=== PATIENT | male | born 1995 | race Hispanic/Latino ===

== ENCOUNTER 2023-05-29 10:40 | Emergency (ER) | payer MEDICAID, OTHER ==
[~2023-05-29] VITALS: Ht 182.9 cm; Wt 99.8 kg
[~2023-05-29 10:40] MED LIST: no medications
[2023-05-29 11:03] VITALS: BP 172/106; PULSE 98; RESP 18; O2SAT 97
[2023-05-29] MEDS ORDERED: LACTATED RINGERS 1000ML 1,000 ML IV ONE (11:30)
[2023-05-29 11:32] LABS: BASOPHILS % (AUTO) 0.4 % (0.0-5.0); EOSINOPHILS % (AUTO) 0.2 % (0.0-8.0); HEMATOCRIT 48.2 % (42-54); LYMPHOCYTES % (AUTO) 8.3 % (21.0-51.0); MEAN CORPUSCULAR HEMOGLOBIN 29.7 pg (27.0-33.0); MEAN CORPUSCULAR HGB CONC 34.2 g/dL (32.0-36.0); MEAN CORPUSCULAR VOLUME 86.7 fL (79-99); MONOCYTES % (AUTO) 11.8 % (3.0-13.0); NEUTROPHILS % (AUTO) 78.8 % (40.0-77.0); PLATELET COUNT (AUTO) 278 K/uL (130-400); RED BLOOD CELL COUNT(AUTO) 5.56 MIL/uL (4.50-6.20); RED CELL DISTRIBUTION WIDTH 12.7 % (11.0-15.5); WHITE BLOOD COUNT (AUTO) 12.9 K/uL (4.8-10.8)
[2023-05-29 11:44] LABS: CARBON DIOXIDE 27 mmol/L (21-32); CHLORIDE 94 mmol/L (101-111); GLOMERULAR FILTR. RATE CALC 106 mL/min (>90); GLUCOSE,RANDOM 107 mg/dL (70-105); POTASSIUM 3.3 mmol/L (3.5-5.1); SODIUM SERUM 134 mmol/L (136-145); UREA NITROGEN, BLOOD 10 mg/dL (7-18)
[2023-05-29 11:49] LABS: ALANINE AMINOTRANSFERASE 29 U/L (12-78); ALBUMIN 3.2 g/dL (3.5-5.0); ASPARTATE AMINOTRANSFERASE 16 U/L (10-37); LIPASE < 50 U/L (114-286); TOTAL PROTEIN, SERUM 8.4 g/dL (6.0-8.3)
== END 2023-05-29 13:08 | disposition home or self-care (01) ==
LOC: EDH 10:40
DX: R10.13 Epigastric pain (principal); R11.2 Nausea with vomiting, unspecified; R19.7 Diarrhea, unspecified; Z88.0 Allergy status to penicillin; Z20.822 Contact with and (suspected) exposure to COVID-19
CPT/HCPCS: 99283; 96360; 87635; 96361; 80053; 83690; 85025; 87804 ×2; 36415; C9803; J7120

== ENCOUNTER 2023-09-09 08:42 | Inpatient (IN) | payer OTHER ==
[2023-09-09] VITALS (24 sets, daily range): BP systolic 152–165; BP diastolic 81–97; PULSE 110–123; RESP 18–61; O2SAT 100
[~2023-09-09] VITALS: Ht 182.9 cm; Wt 104.1 kg
[2023-09-09 09:12] LABS: BASOPHILS # (AUTO) 0.16 K/uL (0.00-0.20); BASOPHILS % (AUTO) 0.7 % (0.0-5.0); HEMATOCRIT 50.8 % (42-54); IMMATURE GRANULOCYTE ABSOLUTE 0.16 K/uL (0-1); LYMPHOCYTES # (AUTO) 0.9 K/uL (1.0-4.8); LYMPHOCYTES % (AUTO) 3.7 % (21.0-51.0); MEAN CORPUSCULAR HEMOGLOBIN 30.7 pg (27.0-33.0); MEAN CORPUSCULAR HGB CONC 35.4 g/dL (32.0-36.0); MEAN CORPUSCULAR VOLUME 86.5 fL (79-99); MONOCYTES # (AUTO) 0.8 K/uL (0.1-1.0); MONOCYTES % (AUTO) 3.3 % (3.0-13.0); NEUTROPHILS % (AUTO) 91.6 % (40.0-77.0); PLATELET COUNT (AUTO) 252 K/uL (130-400); RED BLOOD CELL COUNT(AUTO) 5.87 MIL/uL (4.50-6.20); RED CELL DISTRIBUTION WIDTH 13.4 % (11.0-15.5); WHITE BLOOD COUNT (AUTO) 23.9 K/uL (4.8-10.8)
[2023-09-09 09:23] LABS: AMPHET/METH SCREEN,URINE NEGATIVE (NEGATIVE); BARBITURATE SCREEN, URINE NEGATIVE (NEGATIVE); BENZODIAZEPINES SCREEN,URINE NEGATIVE (NEGATIVE); CANNABINOID SCREEN,URINE POSITIVE (NEGATIVE); COCAINE SCREEN,URINE POSITIVE (NEGATIVE); OPIATE SCREEN,URINE NEGATIVE (NEGATIVE); PHENCYCLIDINE SCREEN,URINE NEGATIVE (NEGATIVE)
[2023-09-09 09:24] LABS: ADD UA MICROSCOPIC YES
[2023-09-09 09:29] LABS: ALBUMIN 3.2 g/dL (3.5-5.0); BILIRUBIN,TOTAL 0.9 mg/dL (0.2-1.0); CREATININE 1.4 mg/dL (0.5-1.5); POTASSIUM 3.6 mmol/L (3.5-5.1)
[2023-09-09 09:35] LABS: APPEARANCE,URINE CLOUDY (CLEAR); BILIRUBIN,URINE NEGATIVE (NEGATIVE); COLOR,URINE YELLOW (YELLOW); GLUCOSE, URINE (UA) NEGATIVE (NEGATIVE); KETONES,URINE 40 mg/dL (NEGATIVE); LEUKOCYTE ESTERASE ,URINE 75 Leu/uL (NEGATIVE); MUCUS,URINE RARE LPF (None Seen); NITRATE,URINE NEGATIVE (NEGATIVE); NON-SQUAMOUS EPITHELIAL CELL 1 /HPF (0-2); OCCULT BLOOD,URINE MODERATE (NEGATIVE); PH,URINE 5.5 (5.0-8.0); PROTEIN,URINE 100 mg/dL (NEGATIVE); SQUAMOUS EPITHELIAL CELL,UR RARE /HPF (0-2); UROBILINOGEN,URINE 0.2 mg/dL (0.2-1.0); WBC,URINE 26-50 /HPF (0-1)
[2023-09-09] MEDS ORDERED: LACTATED RINGERS 1000ML 2,328 ML IV ONE (10:00)
[2023-09-09 10:58] LABS: MAGNESIUM 1.8 mg/dL (1.80-2.40)
[2023-09-09] MEDS ORDERED: LEVOFLOXACIN 750 MG/D5W 150ML BAG IV ONE (12:30)
[2023-09-09] MEDS ORDERED: VANCOMYCIN KIT 1 GM/250 ML IV.KIT IV ONE (12:30)
[2023-09-09] MEDS ORDERED: 0.9%NACL 1000ML 1,000 ML IV SCH (13:30)
[2023-09-09 14:10] LABS: CREATININE,URINE RANDOM 303 mg/dL (30-135); SODIUM,URINE RANDOM 26 mmol/l (40-220)
[2023-09-09 14:23] LABS: INR 1.17 (0.85-1.15); PROTHROMBIN TIME 13.4 SEC (9.6-11.6)
[2023-09-09 14:25] LABS: PARTIAL THROMBOPLASTIN TIME 36.6 SEC (26.3-35.5)
[2023-09-09] MEDS: METRONIDAZOLE 500MG/100ML BAG 100 ML IVPB SCH (16:02)
[2023-09-09] MEDS ORDERED: FLUCONAZOLE 400 MG/NS 200 ML 200 ML IV SCH (17:00)
[2023-09-09] MEDS ORDERED: POTASSIUM CHLORIDE 20MEQ/100ML 100 ML IV PRN ×2 (17:00)
[2023-09-09] MEDS ORDERED: POTASSIUM CHLORIDE 10% ELIXIR 20 MEQ/15 ML UDCUP PO PRN (17:00)
[2023-09-09] MEDS ORDERED: DEXTROSE 50%-WATER 50 ML DISP.SYRIN IV PRN (17:00)
[2023-09-09] MEDS ORDERED: GLUCAGON 1MG KIT 1 MG ML IM PRN (17:00)
[2023-09-09] MEDS ORDERED: AZITHROMYCIN 500MG+NS 250ML 250 ML IVPB ONE (19:00)
[2023-09-09] MEDS ORDERED: PROPOFOL 10 MG/ML 20ML VIAL IV ONE ×2 (19:49→22:01)
[2023-09-09] MEDS ORDERED: MIDAZOLAM HCL 1 MG/ML 2ML VIAL ONE (19:49)
[2023-09-09] MEDS ORDERED: SUCCINYLCHOLINE 200MG/10ML SYR ONE (19:49)
[2023-09-09] MEDS ORDERED: ROCURONIUM 10MG/1ML SYR 10 MG/ML ML ONE ×3 (19:49→22:16)
[2023-09-09] MEDS ORDERED: FENTANYL CITRATE PF 50 MCG/1 ML 5ML AMP IV ONE (20:00)
[2023-09-09] MEDS ORDERED: CLINDAMYCIN 900MG/6ML INJ IJ ONE (20:02)
[2023-09-09] MEDS: AZITHROMYCIN 500MG+NS 250ML IVPB SCH (21:30)
[2023-09-09] MEDS ORDERED: ROPIVACAINE 0.5% 5MG/ML 30ML IJ ONE (22:15)
[2023-09-09] MEDS ORDERED: BUPIVACAINE/PF 0.5% 30ML VIAL ONE (22:25)
[2023-09-09] MEDS ORDERED: LIDOCAINE HCL 1% 20 ML VIAL ONE (22:27)
[2023-09-09] MEDS ORDERED: LIDOCAINE HCL 1% 10 ML VIAL ONE (22:27)
[2023-09-09] MEDS ORDERED: GLYCOPYRROLATE 1 MG/5 ML SYRINGE ONE (23:01)
[2023-09-09] MEDS ORDERED: NEOSTIGMINE 5MG/5ML SYR IV ONE (23:02)
[2023-09-09] MEDS: FAMOTIDINE 20MG VIAL IV SCH (23:51)
[2023-09-10] VITALS (45 sets, daily range): BP systolic 99–167; BP diastolic 64–110; PULSE 102–129; RESP 13–29; O2SAT 93–100
[2023-09-10] MEDS ORDERED: ONDANSETRON 4MG INJ IVP PRN
[2023-09-10] MEDS: HYDROMORPHONE 2 MG VIAL (2MG/ML) IVP PRN ×4 (00:59→21:38)
[2023-09-10] MEDS: AZITHROMYCIN 500MG+NS 250ML IVPB SCH (01:00)
[2023-09-10] MEDS: METRONIDAZOLE 500MG/100ML BAG 100 ML IVPB SCH ×4 (01:55→21:38)
[2023-09-10] MEDS: HYDRALAZINE 20MG/ML VIAL IV PRN (03:14)
[2023-09-10 03:49] LABS: BASOPHILS # (AUTO) 0.05 K/uL (0.00-0.20); BASOPHILS % (AUTO) 0.8 % (0.0-5.0); HEMATOCRIT 47.1 % (42-54); IMMATURE GRANULOCYTE ABSOLUTE 0.04 K/uL (0-1); LYMPHOCYTES # (AUTO) 0.4 K/uL (1.0-4.8); LYMPHOCYTES % (AUTO) 6.8 % (21.0-51.0); MEAN CORPUSCULAR VOLUME 88.4 fL (79-99); MONOCYTES # (AUTO) 0.4 K/uL (0.1-1.0); NEUTROPHILS # (AUTO) 5.6 K/uL (1.8-7.7); NEUTROPHILS % (AUTO) 85.8 % (40.0-77.0); PLATELET COUNT (AUTO) 189 K/uL (130-400); RED BLOOD CELL COUNT(AUTO) 5.33 MIL/uL (4.50-6.20); RED CELL DISTRIBUTION WIDTH 13.8 % (11.0-15.5); WHITE BLOOD COUNT (AUTO) 6.5 K/uL (4.8-10.8)
[2023-09-10 04:08] LABS: ALBUMIN 1.9 g/dL (3.5-5.0); BILIRUBIN,TOTAL 0.8 mg/dL (0.2-1.0); MAGNESIUM 1.5 mg/dL (1.80-2.40); POTASSIUM 3.8 mmol/L (3.5-5.1); TOTAL PROTEIN, SERUM 5.7 g/dL (6.0-8.3)
[2023-09-10] MEDS: MAGNESIUM 2GM PREMIX 50ML 50 ML IV PRN (05:56)
[2023-09-10] MEDS: KETOROLAC 30MG VIAL (30MG/ML) IVP PRN (05:56)
[2023-09-10] MEDS: 0.9%NACL 1000ML 1,000 ML IV SCH ×3 (08:00→16:07)
[2023-09-10] MEDS: THIAMINE HCL 100 MG/ML 2ML VIAL IVP SCH (08:48)
[2023-09-10] MEDS: FAMOTIDINE 20MG VIAL IV SCH ×2 (08:49→21:38)
[2023-09-10] MEDS: ENOXAPARIN SODIUM 40 MG/0.4 ML SYRINGE SQ SCH (08:49)
[2023-09-10] MEDS: FOLIC ACID 5 MG/ML VIAL IV SCH (08:49)
[2023-09-10] MEDS: LEVOFLOXACIN 750 MG/D5W 150 ML 150 ML IV SCH (13:23)
[2023-09-10] MEDS ORDERED: METOPROLOL TARTRATE 1 MG/ML 5ML VIAL IV ONE (14:30)
[2023-09-10 14:39] LABS: HIV 1&2 ANTIBODY Non-Reactive (Negative); HIV-1 p24 Antigen Non-Reactive (Negative)
[2023-09-10] MEDS: DOXYCYCLINE 100MG+NS 250ML 250 ML IV SCH (16:03)
[2023-09-10] MEDS ORDERED: AZITHROMYCIN 500MG+NS 250ML IVPB SCH (20:30)
[2023-09-10] MEDS ORDERED: AZITHROMYCIN 250 MG TABLET PO SCH (21:00)
[2023-09-10] MEDS: FLUCONAZOLE 200 MG/NS 100 ML IVPB SCH (22:46)
[2023-09-11] VITALS (30 sets, daily range): BP systolic 140–178; BP diastolic 80–103; PULSE 94–113; RESP 13–36; O2SAT 92–97
[2023-09-11] MEDS: DOXYCYCLINE 100MG+NS 250ML 250 ML IV SCH ×2 (01:14→14:10)
[2023-09-11] MEDS: KETOROLAC 30MG VIAL (30MG/ML) IVP PRN (01:14)
[2023-09-11 04:51] LABS: BASOPHILS # (AUTO) 0.05 K/uL (0.00-0.20); BASOPHILS % (AUTO) 0.5 % (0.0-5.0); EOSINOPHILS # (AUTO) 0.01 K/uL (0.00-0.70); EOSINOPHILS % (AUTO) 0.1 % (0.0-8.0); IMMATURE GRANULOCYTE ABSOLUTE 0.08 K/uL (0-1); LYMPHOCYTES # (AUTO) 0.7 K/uL (1.0-4.8); LYMPHOCYTES % (AUTO) 7.4 % (21.0-51.0); MEAN CORPUSCULAR HEMOGLOBIN 30.2 pg (27.0-33.0); MEAN CORPUSCULAR HGB CONC 33.5 g/dL (32.0-36.0); MEAN CORPUSCULAR VOLUME 90.1 fL (79-99); MONOCYTES # (AUTO) 0.9 K/uL (0.1-1.0); MONOCYTES % (AUTO) 8.8 % (3.0-13.0); NEUTROPHILS # (AUTO) 8.2 K/uL (1.8-7.7); NEUTROPHILS % (AUTO) 82.4 % (40.0-77.0); PLATELET COUNT (AUTO) 211 K/uL (130-400); RED BLOOD CELL COUNT(AUTO) 4.44 MIL/uL (4.50-6.20); RED CELL DISTRIBUTION WIDTH 14.2 % (11.0-15.5)
[2023-09-11] MEDS: METRONIDAZOLE 500MG/100ML BAG 100 ML IVPB SCH ×3 (05:07→20:36)
[2023-09-11] MEDS: 0.9%NACL 1000ML 1,000 ML IV SCH ×2 (05:07→07:52)
[2023-09-11 05:14] LABS: ALBUMIN 1.7 g/dL (3.5-5.0); BILIRUBIN,TOTAL 0.9 mg/dL (0.2-1.0); CREATININE 0.9 mg/dL (0.5-1.5); POTASSIUM 3.8 mmol/L (3.5-5.1); TOTAL PROTEIN, SERUM 5.7 g/dL (6.0-8.3)
[2023-09-11] MEDS: FAMOTIDINE 20MG VIAL IV SCH ×2 (09:15→19:34)
[2023-09-11] MEDS: THIAMINE HCL 100 MG/ML 2ML VIAL IVP SCH (09:15)
[2023-09-11] MEDS: LEVOFLOXACIN 750 MG/D5W 150 ML 150 ML IV SCH (09:15)
[2023-09-11] MEDS: ENOXAPARIN SODIUM 40 MG/0.4 ML SYRINGE SQ SCH (09:18)
[2023-09-11] MEDS: HYDROMORPHONE 2 MG VIAL (2MG/ML) IVP PRN ×3 (09:18→19:34)
[2023-09-11] MEDS: FOLIC ACID 5 MG/ML VIAL IV SCH (11:05)
[2023-09-11] MEDS: LACTATED RINGERS 1000ML 1,000 ML IV SCH ×2 (11:06→17:25)
[2023-09-11] MEDS: HYDRALAZINE 20MG/ML VIAL IV PRN (20:34)
[2023-09-11] MEDS: FLUCONAZOLE 200 MG/NS 100 ML IVPB SCH (21:35)
[2023-09-12] VITALS (17 sets, daily range): BP systolic 125–166; BP diastolic 71–104; PULSE 96–115; RESP 10–37; O2SAT 95
[2023-09-12] MEDS: HYDROMORPHONE 2 MG VIAL (2MG/ML) IVP PRN ×3 (00:26→22:37)
[2023-09-12] MEDS: LACTATED RINGERS 1000ML 1,000 ML IV SCH ×4 (00:46→20:47)
[2023-09-12] MEDS: DOXYCYCLINE 100MG+NS 250ML 250 ML IV SCH ×2 (01:49→13:45)
[2023-09-12] MEDS: HYDRALAZINE 20MG/ML VIAL IV PRN (02:31)
[2023-09-12 04:40] LABS: BASOPHILS # (AUTO) 0.06 K/uL (0.00-0.20); BASOPHILS % (AUTO) 0.6 % (0.0-5.0); EOSINOPHILS # (AUTO) 0.03 K/uL (0.00-0.70); EOSINOPHILS % (AUTO) 0.3 % (0.0-8.0); HEMATOCRIT 38.9 % (42-54); IMMATURE GRANULOCYTE ABSOLUTE 0.31 K/uL (0-1); LYMPHOCYTES # (AUTO) 0.9 K/uL (1.0-4.8); LYMPHOCYTES % (AUTO) 8.9 % (21.0-51.0); MEAN CORPUSCULAR HEMOGLOBIN 30.5 pg (27.0-33.0); MEAN CORPUSCULAR HGB CONC 32.9 g/dL (32.0-36.0); MEAN CORPUSCULAR VOLUME 92.8 fL (79-99); MONOCYTES % (AUTO) 9.8 % (3.0-13.0); NEUTROPHILS # (AUTO) 7.9 K/uL (1.8-7.7); NEUTROPHILS % (AUTO) 77.4 % (40.0-77.0); PLATELET COUNT (AUTO) 131 K/uL (130-400); RED BLOOD CELL COUNT(AUTO) 4.19 MIL/uL (4.50-6.20); RED CELL DISTRIBUTION WIDTH 14.6 % (11.0-15.5); WHITE BLOOD COUNT (AUTO) 10.2 K/uL (4.8-10.8)
[2023-09-12] MEDS: METRONIDAZOLE 500MG/100ML BAG 100 ML IVPB SCH ×3 (05:08→20:47)
[2023-09-12] MEDS: KETOROLAC 30MG VIAL (30MG/ML) IVP PRN ×2 (05:13→11:13)
[2023-09-12 05:18] LABS: ALBUMIN 1.5 g/dL (3.5-5.0); BILIRUBIN,TOTAL 0.8 mg/dL (0.2-1.0); CREATININE 0.5 mg/dL (0.5-1.5); MAGNESIUM 1.8 mg/dL (1.80-2.40); POTASSIUM 3.9 mmol/L (3.5-5.1); TOTAL PROTEIN, SERUM 5.5 g/dL (6.0-8.3)
[2023-09-12] MEDS: MAGNESIUM 2GM PREMIX 50ML 50 ML IV PRN (06:40)
[2023-09-12] MEDS ORDERED: POTASSIUM CHLORIDE 20MEQ/100ML 100 ML IV ONE (08:30)
[2023-09-12] MEDS ORDERED: MAGNESIUM 2GM PREMIX 50ML 50 ML IV SCH (08:30)
[2023-09-12] MEDS: THIAMINE HCL 100 MG/ML 2ML VIAL IVP SCH (08:48)
[2023-09-12] MEDS: LEVOFLOXACIN 750 MG/D5W 150 ML 150 ML IV SCH (08:48)
[2023-09-12] MEDS: ENOXAPARIN SODIUM 40 MG/0.4 ML SYRINGE SQ SCH (08:48)
[2023-09-12] MEDS: FOLIC ACID 5 MG/ML VIAL IV SCH (08:49)
[2023-09-12] MEDS: FAMOTIDINE 20MG VIAL IV SCH ×2 (08:49→20:47)
[2023-09-12] MEDS: FLUCONAZOLE 200 MG/NS 100 ML IVPB SCH (22:26)
[2023-09-13] VITALS (12 sets, daily range): BP systolic 150–180; BP diastolic 94–112; PULSE 84–100; RESP 18–20; O2SAT 96–97
[2023-09-13] MEDS: DOXYCYCLINE 100MG+NS 250ML 250 ML IV SCH ×2 (02:50→13:45)
[2023-09-13] MEDS: LACTATED RINGERS 1000ML 1,000 ML IV SCH ×4 (02:56→23:00)
[2023-09-13 03:57] LABS: HEMATOCRIT 37.2 % (42-54); MEAN CORPUSCULAR HEMOGLOBIN 29.9 pg (27.0-33.0); MEAN CORPUSCULAR HGB CONC 33.1 g/dL (32.0-36.0); MEAN CORPUSCULAR VOLUME 90.5 fL (79-99); RED BLOOD CELL COUNT(AUTO) 4.11 MIL/uL (4.50-6.20); RED CELL DISTRIBUTION WIDTH 14.6 % (11.0-15.5)
[2023-09-13] MEDS: KETOROLAC 30MG VIAL (30MG/ML) IVP PRN (04:09)
[2023-09-13] MEDS: MAGNESIUM 2GM PREMIX 50ML 50 ML IV PRN ×2 (04:59→14:14)
[2023-09-13] MEDS: METRONIDAZOLE 500MG/100ML BAG 100 ML IVPB SCH ×3 (05:00→20:36)
[2023-09-13] MEDS: ENOXAPARIN SODIUM 40 MG/0.4 ML SYRINGE SQ SCH (09:30)
[2023-09-13] MEDS: LEVOFLOXACIN 750 MG/D5W 150 ML 150 ML IV SCH (09:31)
[2023-09-13] MEDS: THIAMINE HCL 100 MG/ML 2ML VIAL IVP SCH (09:31)
[2023-09-13] MEDS: FAMOTIDINE 20MG VIAL IV SCH ×2 (09:31→20:34)
[2023-09-13] MEDS: FOLIC ACID 5 MG/ML VIAL IV SCH (09:32)
[2023-09-13] MEDS: HYDROMORPHONE 2 MG VIAL (2MG/ML) IVP PRN ×2 (11:19→20:30)
[2023-09-13] MEDS ORDERED: MAGNESIUM 2GM PREMIX 50ML 50 ML IV SCH (11:30)
[2023-09-13] MEDS: HYDRALAZINE 20MG/ML VIAL IV PRN (12:54)
[2023-09-13] MEDS: FLUCONAZOLE 200 MG/NS 100 ML IVPB SCH (23:32)
[2023-09-14] VITALS (8 sets, daily range): BP systolic 148–188; BP diastolic 91–108; PULSE 85–118; RESP 18–20; O2SAT 96
[2023-09-14] MEDS: HYDROMORPHONE 2 MG VIAL (2MG/ML) IVP PRN ×4 (00:15→22:10)
[2023-09-14] MEDS: DOXYCYCLINE 100MG+NS 250ML 250 ML IV SCH ×2 (03:13→15:00)
[2023-09-14 05:09] LABS: HEMATOCRIT 37.2 % (42-54); MEAN CORPUSCULAR HEMOGLOBIN 30.6 pg (27.0-33.0); MEAN CORPUSCULAR HGB CONC 34.7 g/dL (32.0-36.0); MEAN CORPUSCULAR VOLUME 88.4 fL (79-99); RED BLOOD CELL COUNT(AUTO) 4.21 MIL/uL (4.50-6.20); RED CELL DISTRIBUTION WIDTH 13.9 % (11.0-15.5); WHITE BLOOD COUNT (AUTO) 17.6 K/uL (4.8-10.8)
[2023-09-14] MEDS: METRONIDAZOLE 500MG/100ML BAG 100 ML IVPB SCH ×3 (05:09→21:09)
[2023-09-14 05:37] LABS: ALBUMIN 1.7 g/dL (3.5-5.0); BILIRUBIN,TOTAL 0.8 mg/dL (0.2-1.0); CREATININE 0.6 mg/dL (0.5-1.5); MAGNESIUM 1.5 mg/dL (1.80-2.40); POTASSIUM 3.1 mmol/L (3.5-5.1); TOTAL PROTEIN, SERUM 5.9 g/dL (6.0-8.3)
[2023-09-14] MEDS: LACTATED RINGERS 1000ML 1,000 ML IV SCH ×2 (05:40→15:00)
[2023-09-14] MEDS: KCL 20 MEQ ERTAB PO PRN (05:43)
[2023-09-14] MEDS: MAGNESIUM 2GM PREMIX 50ML 50 ML IV PRN (05:47)
[2023-09-14] MEDS: THIAMINE HCL 100 MG/ML 2ML VIAL IVP SCH (10:55)
[2023-09-14] MEDS: FAMOTIDINE 20MG VIAL IV SCH ×2 (10:55→19:42)
[2023-09-14] MEDS: AMLODIPINE 2.5 MG TAB PO SCH (10:55)
[2023-09-14] MEDS: LEVOFLOXACIN 750 MG/D5W 150 ML 150 ML IV SCH (10:56)
[2023-09-14] MEDS: FOLIC ACID 5 MG/ML VIAL IV SCH (10:56)
[2023-09-14] MEDS: ENOXAPARIN SODIUM 40 MG/0.4 ML SYRINGE SQ SCH (10:57)
[2023-09-14] MEDS: KETOROLAC 30MG VIAL (30MG/ML) IVP PRN (19:42)
[2023-09-14] MEDS: ACETAMINOPHEN 325 MG TAB PO PRN (21:09)
[2023-09-14] MEDS: HYDRALAZINE 20MG/ML VIAL IV PRN (21:09)
[2023-09-15] VITALS (8 sets, daily range): BP systolic 143–169; BP diastolic 84–93; PULSE 90–110; RESP 18–20; TEMP 101.2; O2SAT 99
[2023-09-15] MEDS: FLUCONAZOLE 200 MG/NS 100 ML IVPB SCH ×2 (00:43→23:11)
[2023-09-15] MEDS ORDERED: LABETALOL 20MG SYG IV ONE (01:30)
[2023-09-15] MEDS ORDERED: IBUPROFEN 800 MG TAB PO ONE (01:30)
[2023-09-15] MEDS ORDERED: IBUPROFEN 200 MG TAB PO ONE (01:30)
[2023-09-15] MEDS: LACTATED RINGERS 1000ML 1,000 ML IV SCH ×3 (01:46→21:08)
[2023-09-15] MEDS: DOXYCYCLINE 100MG+NS 250ML 250 ML IV SCH ×2 (01:46→16:27)
[2023-09-15] MEDS: METRONIDAZOLE 500MG/100ML BAG 100 ML IVPB SCH ×3 (05:30→21:02)
[2023-09-15] MEDS: HYDRALAZINE 20MG/ML VIAL IV PRN (05:31)
[2023-09-15 06:16] LABS: BASOPHILS # (AUTO) 0.03 K/uL (0.00-0.20); BASOPHILS % (AUTO) 0.2 % (0.0-5.0); EOSINOPHILS # (AUTO) 0.02 K/uL (0.00-0.70); EOSINOPHILS % (AUTO) 0.1 % (0.0-8.0); HEMATOCRIT 38.3 % (42-54); IMMATURE GRANULOCYTE ABSOLUTE 1.98 K/uL (0-1); LYMPHOCYTES # (AUTO) 0.7 K/uL (1.0-4.8); LYMPHOCYTES % (AUTO) 3.7 % (21.0-51.0); MEAN CORPUSCULAR HEMOGLOBIN 29.8 pg (27.0-33.0); MEAN CORPUSCULAR HGB CONC 33.9 g/dL (32.0-36.0); MEAN CORPUSCULAR VOLUME 87.8 fL (79-99); MONOCYTES % (AUTO) 5.4 % (3.0-13.0); NEUTROPHILS % (AUTO) 79.4 % (40.0-77.0); NUCLEATED RED BLOOD CELLS 0.1 % (0.0-0.19); PLATELET COUNT (AUTO) 288 K/uL (130-400); RED BLOOD CELL COUNT(AUTO) 4.36 MIL/uL (4.50-6.20); RED CELL DISTRIBUTION WIDTH 13.8 % (11.0-15.5); WHITE BLOOD COUNT (AUTO) 17.7 K/uL (4.8-10.8)
[2023-09-15 06:40] LABS: CREATININE 0.7 mg/dL (0.5-1.5); POTASSIUM 3.3 mmol/L (3.5-5.1)
[2023-09-15] MEDS: KCL 20 MEQ ERTAB PO PRN (06:46)
[2023-09-15] MEDS ORDERED: COMPOUND IV REFRIGERATED 1 EACH IVSOLN MISC PRN (09:00)
[2023-09-15] MEDS: AMLODIPINE 2.5 MG TAB PO SCH (09:11)
[2023-09-15] MEDS: FOLIC ACID 5 MG/ML VIAL IV SCH (09:11)
[2023-09-15] MEDS: THIAMINE HCL 100 MG/ML 2ML VIAL IVP SCH (09:11)
[2023-09-15] MEDS: FAMOTIDINE 20MG VIAL IV SCH ×2 (09:11→21:02)
[2023-09-15] MEDS: ENOXAPARIN SODIUM 40 MG/0.4 ML SYRINGE SQ SCH (09:11)
[2023-09-15] MEDS: LEVOFLOXACIN 750 MG/D5W 150 ML 150 ML IV SCH (09:12)
[2023-09-15] MEDS: MAGNESIUM 2GM PREMIX 50ML 50 ML IV PRN (19:22)
[2023-09-15] MEDS: ACETAMINOPHEN 325 MG TAB PO PRN (21:11)
[2023-09-16] MEDS: DOXYCYCLINE 100MG+NS 250ML 250 ML IV SCH ×2 (02:27→13:36)
[2023-09-16 03:33] VITALS: BP 159/96; PULSE 96; RESP 18
[2023-09-16] MEDS: METRONIDAZOLE 500MG/100ML BAG 100 ML IVPB SCH ×3 (05:05→21:05)
[2023-09-16] MEDS: LACTATED RINGERS 1000ML 1,000 ML IV SCH (05:12)
[2023-09-16 05:17] LABS: BASOPHILS # (AUTO) 0.07 K/uL (0.00-0.20); BASOPHILS % (AUTO) 0.5 % (0.0-5.0); EOSINOPHILS # (AUTO) 0.01 K/uL (0.00-0.70); EOSINOPHILS % (AUTO) 0.1 % (0.0-8.0); HEMATOCRIT 37.6 % (42-54); IMMATURE GRANULOCYTE ABSOLUTE 0.92 K/uL (0-1); LYMPHOCYTES # (AUTO) 1.1 K/uL (1.0-4.8); LYMPHOCYTES % (AUTO) 7.5 % (21.0-51.0); MEAN CORPUSCULAR HEMOGLOBIN 30.7 pg (27.0-33.0); MEAN CORPUSCULAR VOLUME 90.2 fL (79-99); MONOCYTES # (AUTO) 1.2 K/uL (0.1-1.0); MONOCYTES % (AUTO) 8.2 % (3.0-13.0); NEUTROPHILS # (AUTO) 11.3 K/uL (1.8-7.7); NEUTROPHILS % (AUTO) 77.4 % (40.0-77.0); PLATELET COUNT (AUTO) 280 K/uL (130-400); RED BLOOD CELL COUNT(AUTO) 4.17 MIL/uL (4.50-6.20); RED CELL DISTRIBUTION WIDTH 14.1 % (11.0-15.5); WHITE BLOOD COUNT (AUTO) 14.6 K/uL (4.8-10.8)
[2023-09-16 05:29] LABS: CREATININE 0.6 mg/dL (0.5-1.5); MAGNESIUM 1.5 mg/dL (1.80-2.40); PHOSPHORUS 3.5 mg/dL (2.5-4.9); POTASSIUM 3.6 mmol/L (3.5-5.1)
[2023-09-16 08:00] VITALS: BP 165/98; PULSE 88; RESP 18; O2SAT 93
[2023-09-16] MEDS: LEVOFLOXACIN 750 MG/D5W 150 ML 150 ML IV SCH (08:42)
[2023-09-16] MEDS: MAGNESIUM 2GM PREMIX 50ML 50 ML IV PRN (08:43)
[2023-09-16] MEDS: ENOXAPARIN SODIUM 40 MG/0.4 ML SYRINGE SQ SCH (08:43)
[2023-09-16] MEDS: AMLODIPINE 2.5 MG TAB PO SCH (08:44)
[2023-09-16] MEDS: FOLIC ACID 5 MG/ML VIAL IV SCH (08:44)
[2023-09-16] MEDS: THIAMINE HCL 100 MG/ML 2ML VIAL IVP SCH (08:44)
[2023-09-16] MEDS: FAMOTIDINE 20MG VIAL IV SCH ×2 (08:44→21:04)
[2023-09-16 11:28] VITALS: BP 163/100; PULSE 93; RESP 18
[2023-09-16 16:00] VITALS: BP 179/105; PULSE 92; RESP 18
[2023-09-16] MEDS: KCL 20 MEQ ERTAB PO PRN (18:02)
[2023-09-16 18:47] LABS: INFLUENZA TYPE A Negative For Type A (NEGATIVE); INFLUENZA TYPE B Negative For Type B (NEGATIVE)
[2023-09-16 20:00] VITALS: BP 160/99; PULSE 100; RESP 18
[2023-09-16 21:05] VITALS: O2SAT 94
[2023-09-16] MEDS ORDERED: MAGNESIUM 2GM PREMIX 50ML 50 ML IV PRN (23:30)
[2023-09-16] MEDS: FLUCONAZOLE 200 MG/NS 100 ML IVPB SCH (23:56)
[2023-09-17] VITALS: BP 159/92; PULSE 93; RESP 20
[2023-09-17] MEDS: DOXYCYCLINE 100MG+NS 250ML 250 ML IV SCH ×2 (03:06→14:30)
[2023-09-17 03:55] VITALS: BP 155/90; PULSE 91; RESP 20
[2023-09-17] MEDS: LACTATED RINGERS 1000ML 1,000 ML IV SCH ×2 (05:42→11:43)
[2023-09-17] MEDS: METRONIDAZOLE 500MG/100ML BAG 100 ML IVPB SCH ×2 (05:42→14:00)
[2023-09-17 06:05] LABS: BASOPHILS % (AUTO) 0.7 % (0.0-5.0); EOSINOPHILS # (AUTO) 0.02 K/uL (0.00-0.70); EOSINOPHILS % (AUTO) 0.1 % (0.0-8.0); HEMATOCRIT 40.7 % (42-54); IMMATURE GRANULOCYTE ABSOLUTE 0.51 K/uL (0-1); LYMPHOCYTES # (AUTO) 1.4 K/uL (1.0-4.8); LYMPHOCYTES % (AUTO) 9.2 % (21.0-51.0); MEAN CORPUSCULAR HEMOGLOBIN 30.1 pg (27.0-33.0); MEAN CORPUSCULAR HGB CONC 34.2 g/dL (32.0-36.0); MEAN CORPUSCULAR VOLUME 88.1 fL (79-99); MONOCYTES % (AUTO) 6.3 % (3.0-13.0); NEUTROPHILS # (AUTO) 12.3 K/uL (1.8-7.7); NEUTROPHILS % (AUTO) 80.4 % (40.0-77.0); PLATELET COUNT (AUTO) 330 K/uL (130-400); RED BLOOD CELL COUNT(AUTO) 4.62 MIL/uL (4.50-6.20); RED CELL DISTRIBUTION WIDTH 13.8 % (11.0-15.5); WHITE BLOOD COUNT (AUTO) 15.3 K/uL (4.8-10.8)
[2023-09-17 06:22] LABS: WBC MORPHOLOGY CONSISTENT W/DIFF
[2023-09-17 06:24] LABS: CREATININE 0.6 mg/dL (0.5-1.5); MAGNESIUM 1.7 mg/dL (1.80-2.40); POTASSIUM 3.4 mmol/L (3.5-5.1); THYROID STIMULATING HORMONE 6.75 uIU/mL (0.36-3.74); URIC ACID 3.6 mg/dL (2.6-7.2)
[2023-09-17] MEDS: KCL 20 MEQ ERTAB PO PRN ×2 (06:51→09:12)
[2023-09-17 07:38] VITALS: BP 160/84; PULSE 80; RESP 18
[2023-09-17 08:00] VITALS: O2SAT 94
[2023-09-17] MEDS ORDERED: AMLODIPINE 2.5 MG TAB PO SCH (09:00)
[2023-09-17] MEDS ORDERED: LOSARTAN 25 MG TABLET PO SCH (09:00)
[2023-09-17] MEDS ORDERED: MAGNESIUM OXIDE 400 MG TABLET PO SCH (09:00)
[2023-09-17] MEDS: FAMOTIDINE 20MG VIAL IV SCH (09:13)
[2023-09-17] MEDS: LEVOFLOXACIN 750 MG/D5W 150 ML 150 ML IV SCH (09:14)
[2023-09-17] MEDS: THIAMINE HCL 100 MG/ML 2ML VIAL IVP SCH (09:14)
[2023-09-17] MEDS: FOLIC ACID 5 MG/ML VIAL IV SCH (09:15)
[2023-09-17] MEDS: MAGNESIUM 2GM PREMIX 50ML 50 ML IV PRN (09:15)
[2023-09-17] MEDS: ENOXAPARIN SODIUM 40 MG/0.4 ML SYRINGE SQ SCH (09:16)
[2023-09-17 11:26] VITALS: BP 154/88; PULSE 66; RESP 17
== END 2023-09-17 17:00 | disposition home or self-care (01) | DRG 853 ==
LOC: EDH 08:42 → EDHIP 08:43 → 2CH 15:11 → 2DH 09-12 11:08 → 3BH 09-13 17:22
PROVIDERS: ADMIT Internal Medicine; ATTEND Internal Medicine
PROC: 3E0M05Z Introduction of Adhesion Barrier into Peritoneal Cavity, Open Approach (ICD-10-PCS; 2023-09-09)
PROC: 0W9J00Z Drainage of Pelvic Cavity with Drainage Device, Open Approach (ICD-10-PCS; principal; 2023-09-09 20:30)
PROC: 0DTN0ZZ Resection of Sigmoid Colon, Open Approach (ICD-10-PCS; 2023-09-09 20:30)
PROC: 0DBU0ZZ Excision of Omentum, Open Approach (ICD-10-PCS; 2023-09-09 20:30)
PROC: 0DTJ0ZZ Resection of Appendix, Open Approach (ICD-10-PCS; 2023-09-09 20:30)
PROC: 0D1M0Z4 Bypass Descending Colon to Cutaneous, Open Approach (ICD-10-PCS; 2023-09-09 20:30)
PROC: 0BQT0ZZ Repair Diaphragm, Open Approach (ICD-10-PCS; 2023-09-09 20:30)
DX: A41.9 Sepsis, unspecified organism (principal); K35.33 Acute appendicitis with perforation, localized peritonitis, and gangrene, with abscess; E87.1 Hypo-osmolality and hyponatremia; N17.9 Acute kidney failure, unspecified; K56.7 Ileus, unspecified; N13.2 Hydronephrosis with renal and ureteral calculous obstruction; K56.50 Intestinal adhesions [bands], unspecified as to partial versus complete obstruction; K57.20 Diverticulitis of large intestine with perforation and abscess without bleeding; F14.10 Cocaine abuse, uncomplicated; L40.9 Psoriasis, unspecified; E86.0 Dehydration; A56.01 Chlamydial cystitis and urethritis; E66.01 Morbid (severe) obesity due to excess calories; K44.9 Diaphragmatic hernia without obstruction or gangrene; K31.89 Other diseases of stomach and duodenum; F10.10 Alcohol abuse, uncomplicated; F12.90 Cannabis use, unspecified, uncomplicated; N28.1 Cyst of kidney, acquired; I10 Essential (primary) hypertension; Z82.49 Family history of ischemic heart disease and other diseases of the circulatory system; Z83.3 Family history of diabetes mellitus; Z87.891 Personal history of nicotine dependence; Z90.49 Acquired absence of other specified parts of digestive tract; Z93.3 Colostomy status; Z88.0 Allergy status to penicillin; Z68.31 Body mass index [BMI] 31.0-31.9, adult
CPT/HCPCS: 36415; 71045; 74176; 80048; 80053; 80305; 81001; 82570; 83605; 83690; 83735; 84100; 84145; 84300; 84443; 84550; 85025; 85027; 85610; 85730; 86038; 86140; 86215; 86235; 86701; 86850; 86900; 86901; 87040; 87077; 87088; 87186; 87390; 87486; 87797; 87804; 88302; 88304; 88305; 88307; 93005; 93306; 99291; A4344; A6266; G0378; J0330; J0360; J0456; J1170; J1450; J1650; J1885; J1956; J2250; J2405; J2704; J2710; J2795; J3010; J3370; J3411; J3475; J3480; J3490; J7120; A4406; A4452; A4649; A4930; J0665